=== PATIENT | male | born 1955 | race African-American/Black ===

== ENCOUNTER 2016-07-05 09:51 | Emergency (ER) | payer MEDICARE ==
--- NOTE | ~2016-07-05 | CR142 ---
[facility] A Service of [facility] RADIOLOGY TEXT RESULTS PATIENT: JORGE GLEZ SR LOCATION: [facility] #: [id number] : 51 UNIT #: [id number] AGE: [address]: JOSELITO GARZA SEX: M ORDER DR: [id number] [place] [id number] [facility]. [place], [place] [address] [id number] E MR#: [id number] Acc #: [id number] NAME: JORGE GLEZ SR : 1955 SEX: M STUDY DATE/TIME: 07/05/2016 10:29 UNIT: [facility] ROOM: STUDY DESCRIPTION: CR Hand Min 3 Views Rt Attending Physician: Joselito Garza Aprn Ordering Physician: Joselito Garza Aprn Primary Care Physician: Boaz Kraus M.D. MEDICAL IMAGING REPORT This report is preliminary unless electronic signature is present EXAM Right hand. DATE OF EXAM 07/05/2016 HISTORY 60-year-old male with right hand pain, status post fall 1 week ago. COMPARISON Right hand, 09/18/2014. FINDINGS 3 views of the right hand demonstrate no displaced fracture or dislocation. There are advanced degenerative changes noted throughout the wrist. There are moderately advanced degenerative changes of the second and third metacarpal phalangeal joints. Non-instrumented osseous fusion of the fifth proximal interphalangeal joint. [id number] arthrosis of the second, third, and fourth distal interphalangeal joints. Mild arthrosis of the first interphalangeal joint. IMPRESSION 1. No evidence of a displaced fracture or dislocation. 2. Advanced multifocal degenerative changes throughout the hand and wrist. Dictated by... Quinton Cohn M.D. THIS IS AN ELECTRONICALLY VERIFIED REPORT Quinton Cohn M.D. at 07/06/2016 8:10 AM JKB/jt [facility] A Service of [facility] RADIOLOGY TEXT RESULTS PATIENT: JORGE GLEZ SR LOCATION: [facility] #: [id number] : 53 UNIT #: [id number] AGE: [address]: JOSELITO GARZA SEX: M ORDER DR: TD: 07/05/2016 15:11 JOB #: [id number] MEDICAL IMAGING REPORT Page 1 of 1 COPY
--- NOTE | ~2016-07-05 | CR282 ---
[facility] A Service of [facility] RADIOLOGY TEXT RESULTS PATIENT: JORGE GLEZ SR [facility] #: [id number] : [birth year] UNIT #: [id number] AGE: [address]: JOSELITO GARZA SEX: M ORDER DR: [id number] [id number] [facility]. [place], [place] [address] [id number] E MR#: [id number] Acc #: [id number] NAME: JORGE GLEZ SR : 1955 SEX: M STUDY DATE/TIME: 07/05/2016 10:28 UNIT: [facility] ROOM: STUDY DESCRIPTION: CR Wrist Min 3 View Rt Attending Physician: Joselito Garza Aprn Ordering Physician: Joselito Garza Aprn Primary Care Physician: Boaz Kraus M.D. MEDICAL IMAGING REPORT This report is preliminary unless electronic signature is present EXAM Right wrist 07/05/2016 HISTORY 60-year-old male with right wrist pain status post fall 1 week ago. COMPARISON Right hand 09/18/2014 FINDINGS 3 views of the right wrist demonstrate no evidence of a displaced fracture or dislocation. There are advanced degenerative changes noted throughout the wrist. There is widening of the scapholunate interval and proximal migration of the capitate. Advanced radiocarpal arthrosis. Advanced arthrosis first CMC joint. There are moderately advanced degenerative changes of the second and third metacarpal phalangeal joints. IMPRESSION 1. No evidence of a displaced fracture or dislocation. 2. Advanced degenerative changes throughout the wrist as well as involving the second and third metacarpal phalangeal joints, detailed above. Dictated by... Quinton Cohn M.D. THIS IS AN ELECTRONICALLY VERIFIED REPORT Quinton Cohn M.D. at 07/06/2016 8:10 AM Teri TD: 07/05/2016 15:16 JOB #: [id number] [facility] A Service of [facility] RADIOLOGY TEXT RESULTS PATIENT: JORGE GLEZ SR [facility] [id number] : [birth year] UNIT #: [id number] AGE: [address]: JOSELITO GARZA SEX: M ORDER DR: MEDICAL IMAGING REPORT Page 1 of 1 COPY
[~2016-07-05 09:51] MED LIST: ACETAMINOPHEN PO; ALBUTEROL17 GM INH; ANTIVERT PO; ASPIRIN PO; ASPIRIN81 M1 PO; ASPIRIN81 M2 PO; ASPIRIN81 MG PO; BACTRIM DS TABL1 TA2 PO; CORICIDIN HBP1 EACH PO; DOCUSATE SODIU100 MG PO; FLEXERIL PO; GABAPENTIN300 MG PO; HYDRALAZINE HCL25 MG PO; INDOMETHACIN25 MG PO; LASIX20 MG PO; LISINOPRIL20 MG PO; LORTAB 5/500 TA1 TA1 PO; LORTAB 7.5-3251 EACH PO; LOVASTATIN20 M1 PO; LOVASTATIN20 MG PO; LOW DOSE ASPIRI81 M1 PO; METOPROLOL SUCC25 MG PO; METOPROLOL TAR25 MG PO; NITROSTAT0.4 MG SL; NON-ASPIRIN325 MG PO; NORVASC PO; NORVASC10 MG PO; PERCOCET 10-651 EACH PO; PRAVACHOL20 MG PO; PRAVASTATIN SOD20 MG PO; PROMETHAZINE HC25 MG PO; PROTONIX PO; ROXICODONE5 MG PO; TOPROL XL PO; ULTRAM PO; ZOFRAN PO; ZYLOPRIM100 MG PO
== END 2016-07-05 11:01 | disposition home or self-care (01) ==
LOC: CFTX 09:51
DX: S60.211A Contusion of right wrist, initial encounter (principal); W19.XXXA Unspecified fall, initial encounter; I11.0 Hypertensive heart disease with heart failure; I50.9 Heart failure, unspecified
CPT/HCPCS: 29280; 73110; 73130; 96372; 99283; J1885

== ENCOUNTER 2016-07-06 23:55 | Emergency (ER) | payer MEDICARE ==
--- NOTE | ~2016-07-06 | CR282 ---
[facility] A Service of [facility] & [facility] RADIOLOGY TEXT RESULTS PATIENT: JORGE GLZE SR LOCATION: [facility] : 51 UNIT #: [id number] AGE: [address]: Lissette Carrero MD SEX: M ORDER DR: [id number] [facility]. [place], [place] [address] [id number] E MR#: [id number] Acc #: [id number] NAME: JORGE GLEZ SR : 1955 SEX: M STUDY DATE/TIME: 07/07/2016 0:17 UNIT: [facility] ROOM: STUDY DESCRIPTION: CR Wrist Min 3 View Rt Attending Physician: Lissette Carrero M.D. Ordering Physician: Lissette Carrero M.D. Primary Care Physician: Boaz Kraus M.D. MEDICAL IMAGING REPORT This report is preliminary unless electronic signature is present EXAM Right wrist 3 views HISTORY Wrist pain x3 days status post fall. COMPARISON Right wrist films 07/05/2016. FINDINGS 3 views of the right wrist demonstrates deformity of the scaphoid which may represent sequela of old trauma. There is developing arthritic changes of the radiocarpal joint, midcarpal joint and also at the STT articulations. 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 This may account for the advanced arthritic change. There is small amount of chondrocalcinosis. No acute fracture is seen. IMPRESSION 1. No definite acute fracture. 2. Moderately advanced arthritic change at the radiocarpal joint, midcarpal joints and also at the STT articulations as well as mild arthritic changes second and third MCP joints and IP joint of the thumb. The changes within the right wrist raise a concern for possible slack wrist or sequela of a chronic scapholunate ligament injury. There is apparent scapholunate interval widening with proximal migration of the capitate. Also not mentioned above there is some deformity of the distal radius could represent the sequela of an old distal radial fracture but again no acute fracture is seen. Dictated by.Jose Membreno M.D. [facility]. [facility] A Service of [facility] & [facility] RADIOLOGY TEXT RESULTS PATIENT: JORGE GLEZ SR LOCATION: [facility] #: [id number] : 53 UNIT #: [id number] AGE: [address]: Lissette Carrero MD SEX: M ORDER DR: THIS IS AN ELECTRONICALLY VERIFIED REPORT Chris Membreno M.D. at 07/07/2016 9:59 PM Georgette TD: 07/07/2016 09:27 JOB #: [id number] MEDICAL IMAGING REPORT Page 1 of 1 COPY
[2016-07-07 00:14] LABS: BASOPHIL# 0.1 X10e3 (0-0.3); BASOPHIL% 0.6 % (0-2.5); EOSINOPHIL# 0.1 X10e3 (0-0.7); EOSINOPHIL% 1.4 % (0.0-7.0); HEMATOCRIT 34.9 % (38.0-50.0); HEMOGLOBIN 10.9 gm/dL (13.0-16.0); LYMPHOCYTE# 1.1 X10e3 (1.0-3.5); LYMPHOCYTE% 12.4 % (17.0-45.0); MEAN CELL VOLUME 77.8 FL (83-96); MEAN CORPUSCULAR HEMOGLOBIN 24.2 PG (28-34); MEAN CORPUSCULAR HGB CONC 31.1 g/dL (30-36); MONOCYTE# 0.5 X10e3 (0-1.0); MONOCYTE% 5.3 % (3.0-12.0); NEUTROPHIL# 7.1 X10e3 (1.5-7.1); NEUTROPHIL% 80.3 % (40-75); PLATELET COUNT 248 X10e3 (140-420); RED BLOOD COUNT 4.49 X10e (3.90-5.60); RED CELL DISTRIBUTION WIDTH 20.5 % (11.0-15.5); WHITE BLOOD COUNT 8.8 X10e3 (4.0-10.5)
[2016-07-07 00:15] LABS: DIFF IND NO
[2016-07-07 00:58] LABS: BUN/CREATININE RATIO 12.3; CALCIUM SERUM 8.5 mg/dL (8.4-10.2); CREATININE SERUM 1.3 mg/dL (0.6-1.4); GLOM FILT RATE Estimated 67.8 mL/min (>60); POTASSIUM 3.9 mmol/L (3.5-5.1); URIC ACID 5.7 mg/dL (2.6-7.2)
== END 2016-07-07 01:30 | disposition home or self-care (01) ==
LOC: CED 23:55
PROVIDERS: Emergency Medicine
DX: S69.92XA Unspecified injury of left wrist, hand and finger(s), initial encounter (principal); M10.9 Gout, unspecified; W19.XXXA Unspecified fall, initial encounter; Y92.009 Unspecified place in unspecified non-institutional (private) residence as the place of occurrence of the external cause
CPT/HCPCS: 73110; 80048; 84550; 85025; 96372; 99283; J2270

== ENCOUNTER 2016-10-27 11:26 | Emergency (ER) | payer MEDICARE ==
[~2016-10-27] VITALS: Ht 180.3 cm; Wt 117.9 kg
--- NOTE | ~2016-10-27 | EKG ---
PATIENT: JORGE GLEZ UNIT #: [id number] Ventricular Rate: 56 BPM Atrial Rate: 56 BPM P-R Interval: 160 ms QRS Duration: 94 ms Q-T Interval: 406 ms QTC Calculation(Bezet): 391 ms P [place]: 45 degrees Calculated R [place]: 0 degrees Calculated T [place]: 6 degrees Diagnosis Line: Sinus bradycardia Diagnosis Line: Possible Left atrial enlargement Diagnosis Line: Left ventricular hypertrophy Diagnosis Line: Nonspecific T wave abnormality Diagnosis Line: Abnormal ECG Diagnosis Line: Diagnosis Line: Confirmed by JEWELS DUPONT MD ([id number]) on 10/27/2016 Diagnosis Line: 8:00:00 PM INTERPRETING MD: CRESENCIO OLSEN
--- NOTE | ~2016-10-27 | CR72 ---
[facility] A Service of [facility] RADIOLOGY TEXT RESULTS PATIENT: JORGE GLEZ SR LOCATION: [facility] : 51 UNIT #: [id number] AGE: [address]: Doreen Herrera MD SEX: M ORDER DR: [id number] [facility] [address] [facility]. [place], [place] [address] [id number] E MR#: [id number] Acc #: [id number] NAME: JORGE GLEZ SR : 1955 SEX: M STUDY DATE/TIME: 10/27/2016 14:44 UNIT: [facility] ROOM: STUDY DESCRIPTION: CR Chest Single View Portable Attending Physician: Doreen Herrera M.D. Ordering Physician: Doreen Herrera M.D. Primary Care Physician: Boaz Kraus M.D. MEDICAL IMAGING REPORT This report is preliminary unless electronic signature is present EXAM Portable chest. INDICATION Right chest pain for 1 day. 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 Large hiatal hernia. No acute infiltrate. Heart size stable. The visualized osseous structures are unremarkable. IMPRESSION No acute findings. Dictated by... Yrn Membreno M.D. THIS IS AN ELECTRONICALLY VERIFIED REPORT Yrn Membreno M.D. at 10/28/2016 7:01 AM ILYA/berlin TD: 10/27/2016 23:04 JOB #: [id number] MEDICAL IMAGING REPORT Page 1 of 1 COPY
[2016-10-27 13:47] LABS: BASOPHIL% 0.5 % (0-2.5); DIFF IND NO; EOSINOPHIL# 0.1 X10e3 (0-0.7); EOSINOPHIL% 1.8 % (0.0-7.0); HEMATOCRIT 37.4 % (38.0-50.0); LYMPHOCYTE# 1.7 X10e3 (1.0-3.5); LYMPHOCYTE% 20.3 % (17.0-45.0); MEAN CELL VOLUME 78.3 FL (83-96); MEAN PLATELET VOLUME 6.7 FL (6.5-11.5); MONOCYTE# 0.7 X10e3 (0-1.0); NEUTROPHIL# 5.9 X10e3 (1.5-7.1); NEUTROPHIL% 69.4 % (40-75); PLATELET COUNT 292 X10e3 (140-420); RED BLOOD COUNT 4.78 X10e (3.90-5.60); RED CELL DISTRIBUTION WIDTH 19.6 % (11.0-15.5); WHITE BLOOD COUNT 8.4 X10e3 (4.0-10.5)
[2016-10-27 14:05] LABS: POC - CKMB 2.4 ng/mL (0.0-7.9); POC - TROPONIN <0.05 ng/mL (<=0.05)
[2016-10-27 14:30] LABS: ALBUMIN SERUM 4.2 g/dL (3.5-5.0); BILIRUBIN, DIRECT 0.1 mg/dL (0.0-0.2); BILIRUBIN,INDIRECT 0.6 mg/dL (0.0-0.9); BILIRUBIN,TOTAL 0.7 mg/dL (0.2-2.0); BUN/CREATININE RATIO 10.83; CALCIUM SERUM 9.1 mg/dL (8.4-10.2); CREATININE SERUM 1.2 mg/dL (0.6-1.4); GLOM FILT RATE Estimated 74.2 mL/min (>60); POTASSIUM 3.6 mmol/L (3.5-5.1); PROTEIN TOTAL SERUM 7.3 g/dL (6.0-8.3)
[2016-10-27 16:11] LABS: POC - CKMB 2.1 ng/mL (0.0-7.9)
[2016-10-27 16:12] LABS: POC - TROPONIN <0.05 ng/mL (<=0.05)
== END 2016-10-27 16:07 | disposition home or self-care (01) ==
LOC: CED 11:26
PROVIDERS: Emergency Medicine
DX: S29.011A Strain of muscle and tendon of front wall of thorax, initial encounter (principal); K21.9 Gastro-esophageal reflux disease without esophagitis; E78.5 Hyperlipidemia, unspecified; G47.33 Obstructive sleep apnea (adult) (pediatric); I13.0 Hypertensive heart and chronic kidney disease with heart failure and stage 1 through stage 4 chronic kidney disease, or unspecified chronic kidney disease; N18.9 Chronic kidney disease, unspecified; I50.9 Heart failure, unspecified; Z95.1 Presence of aortocoronary bypass graft; Z98.890 Other specified postprocedural states; Z79.899 Other long term (current) drug therapy; Z79.82 Long term (current) use of aspirin; Z79.4 Long term (current) use of insulin; X58.XXXA Exposure to other specified factors, initial encounter; Y92.9 Unspecified place or not applicable
CPT/HCPCS: 36415; 71010; 80048; 80076; 82553; 84484; 85025; 93005; 99285; J1885